=== PATIENT | male | born 1970 | race Caucasian/White ===

== ENCOUNTER 2024-05-30 13:28 | Emergency (ER) | payer BC, SELFPAY ==
[2024-05-30 13:31] VITALS: BP 134/80; PULSE 73; RESP 18; TEMP 36.9; O2SAT 95
[2024-05-30 13:44] VITALS: BP 134/80; PULSE 73; RESP 18; TEMP 36.9; O2SAT 95
--- NOTE | 2024-05-30 14:07 | DI.RAD_ITS ---
Exam(s) XR CHEST 2V PA LATERAL EXAM: XR CHEST 2V PA LATERAL CLINICAL HISTORY: cough, asthma TECHNIQUE: 2D digital imaging was performed of the chest. Two images were obtained. PA and lateral views were obtained. COMPARISON: No exams were available for comparison FINDINGS: MEDIASTINUM: Normal. HEART: Normal. PULMONARY VASCULATURE: Normal. LUNGS: No focal consolidating infiltrates. There is mild bronchial wall thickening. This can be see n with bronchitis. PLEURAL SPACE: No pleural effusion or pneumothorax. BONE:Within normal limits for the patient's age. OTHER FINDINGS:Normal. IMPRESSION: Bronchial wall thickening which may be seen with bronchitis. No focal consolidating infiltrates. DATA REPOSITORY: RADIATION DOSE DELIVERED:
--- NOTE | 2024-05-30 14:12 | ED.GENADUL_ITS ---
Discharge Plan Disposition Patient Disposition: Home Condition: Good Discharge Details Clinical Impression: Asthma exacerbation, Pneumonia Primary Care Provider: [facility],Local ED Provider: Maria Alejandra Johnston Home Meds and New Rx's Prescriptions: New amoxicillin-pot clavulanate 875-125 mg tablet 1 tab PO BID Qty: 14 0RF azithromycin 250 mg tablet See Rx Instructions .ROUTE .COMPLEX Qty: 6 0RF Rx Instructions: For 250 mg dose pack: take 500 mg today (day 1), then 250 mg for 4 days (days 2-5) prednisone 50 mg tablet 50 mg PO DAILY Qty: 4 0RF Continued simvastatin 40 mg tablet 40 mg PO DAILY aspirin [Adult Low Dose Aspirin] 81 mg tablet,delayed release (DR/EC) 81 mg PO DAILY niacin 500 mg capsule, extended release 500 mg PO DAILY Discharge Instructions Instructions: Asthma, Adult ED, Pneumonia, Adult ED Additional Instructions: As we discussed, your exam is concerning for asthma exacerbation but I am also concerned for possible pneumonia. Please continue to encourage hydration. If you develop increased shortness of breath, difficulty breathing, chest pain, inability stay hydrated or other new/worsening symptom please seek care urgently once again. Otherwise, please follow-up with your primary care in the next 2 weeks for reevaluation. Please continue with your other medications as previously prescribed. HPI General Date/Time Provider Initiated Documentation: 05/30/24 13:39 . Limitations to Documentation: no limitations . Information obtained by: patient, family and RN notes reviewed . History of Present Illness 53 year old M presents to the emergency department with the chief complaint of asthma, cough, sputum production, fatigue, described as moderate and similar to prior episodes, and is localized to the chest. Patient started experiencing this week(s) (1) and it has been constant (worsening). No relieving factors improve symptom(s), No exacerbating factors reported . Patient notes cough, fever/chills, malaise and shortness of breath (increase use of inhaler); denies chest pain, headaches, loss of appetite, nausea/vomiting and rash. Patient did receive the following treatments prior to arrival, none Related Data Home Medications ?Medication ?Instructions ?Recorded ?Confirmed amoxicillin 875 mg-potassium 1 tab PO BID #14 tabs 05/30/24 clavulanate 125 mg tablet aspirin 81 mg tablet,delayed 81 mg PO DAILY 05/30/24 05/30/24 release (Adult Low Dose Aspirin) azithromycin 250 mg tablet See Rx Instructions PO .COMPLEX #6 05/30/24 tabs niacin 500 mg capsule,extended 500 mg PO DAILY 05/30/24 05/30/24 release prednisone 50 mg tablet 50 mg PO DAILY #4 tabs 05/30/24 simvastatin 40 mg tablet 40 mg PO DAILY 05/30/24 05/30/24 Previous Rx's ?Medication ?Instructions ?Recorded amoxicillin 875 mg-potassium 1 tab PO BID #14 tabs 05/30/24 clavulanate 125 mg tablet azithromycin 250 mg tablet See Rx Instructions PO .COMPLEX #6 05/30/24 tabs prednisone 50 mg tablet 50 mg PO DAILY #4 tabs 05/30/24 Allergies Allergy/AdvReac Type Severity Reaction Status Date / Time No Known Allergies Allergy Unverified 05/30/24 13:34 General Stated Complaint: RespSymp ALEXEI: 3 Review of Systems Constitutional Constitutional: Reports as per HPI, Denies fever(s), Denies headache(s) and Denies poor appetite ENT Ears, Nose, Mouth, and Throat: Denies dizziness and Denies headache(s) Cardiovascular Cardiovascular: Reports as per HPI Respiratory Respiratory: Reports as per HPI, Denies chest congestion, Denies pain on inspiration and Denies pain with cough Gastrointestinal Gastrointestinal: Reports as per HPI, Denies abdominal pain, Denies nausea and Denies vomiting Genitourinary Genitourinary: Denies system reviewed and no additional complaints, except as documented (denies change in urinary habits) Integumentary/Breasts Skin/Breast: Reports as per HPI and Denies rash Neurologic Neurologic: Reports as per HPI, Denies dizziness and Denies headache(s) Exam Const General: cooperative, healthy appearing, comfortable, no acute distress and well developed Nutritional Appearance: average body habitus and well nourished Orientation: alert, awake and oriented x3 HENMT Head: normal to inspection Ears: hearing grossly normal bilaterally Mouth: moist mucous membranes Chest Chest: normal inspection of the chest, normal palpation of entire chest wall and no crepitus Resp Effort & Inspection: normal respiratory effort, able to speak in complete sentences and no respiratory distress Auscultation: wheezes expiratory wheezes and scattered wheezes Cardio Rate: regular rate Rhythm: regular rhythm Heart Sounds: S1 normal and S2 normal Skin General skin exam: no rashes or lesions noted Trauma: no lacerations or abrasions Neuro General: patient alert, patient awake and patient oriented x3 Cognition: normal cognition Speech: speech normal Psych Appearance: grossly normal and well kempt Mental Status: mental status grossly normal Speech and Movement: speech and movement normal Course Vital Signs Vital signs: Vital Signs Temperature 36.9 C 05/30/24 13:31 Pulse 73 05/30/24 13:31 Respiratory Rate 18 05/30/24 13:31 Blood Pressure 134/80 05/30/24 13:31 Pulse Oximetry 95 05/30/24 13:31 Temperature 36.9 C 05/30/24 13:44 Temperature Source Oral 05/30/24 13:44 Pulse 73 05/30/24 13:44 Respiratory Rate 18 05/30/24 13:44 Respiratory Effort Normal, Non-Labored 05/30/24 13:44 Respiratory Depth Normal 05/30/24 13:44 Blood Pressure 134/80 05/30/24 13:44 Pulse Oximetry 95 05/30/24 13:44 Oxygen Delivery Method Room Air 05/30/24 13:44 Oxygen Flow Rate 0 05/30/24 13:44 Medical Decision Making Patient is a pleasant 53-year-old male presenting today with chief complaint of cough and increased asthma symptoms. Reports that he had a cough for the past week. Feels similar to when he has had pneumonia in the past. Denies any fevers. Has had increased sputum production, particularly in the morning. States that he has been using his albuterol more frequently but has not found this overly beneficial. Denies any chest pain. He did have a stress test incidentally last week at home which was found to be normal per patient report. Patient typically resides in [place]. States he has had some runny nose and congestion. States that he is also had some diarrhea but this seems to be slowing down. On exam, patient appears nontoxic. He is resting comfortably in no acute distress. Hemodynamically stable. He has no respiratory distress. Patient does have some expiratory wheeze fairly diffusely. I do not appreciate any significant rhonchi or crackles. Will obtain chest x-ray to evaluate for any pneumonia. Patient may benefit from systemic steroids. Chest x-ray reviewed by myself, still pending read from this. While largely unremarkable, questioning if there is a consolidation on the lateral view we will. This and the patient's increase in times, I do feel that it is appropriate to treat for asthma exacerbation in the setting of bacterial pneumonia. Patient was negative for flu, COVID, RSV. Discussed this plan with the patient and his family. Encourage follow-up with primary care. Return precautions were discussed. All the questions and concerns were addressed in agreement this plan. Chest x-ray reviewed by radiologist, concerning for bronchitis. Will continue with plan above based on patient's history and exam. This documentation was generated using [employer] dictation system, please disregard any oddities of phrase or misspellings. Quality:SDOH Health Related Social Needs: No Data to Display PFSH All Active Problems (Updated 05/30/24 @ 14:33 by KIM Estevez) Pneumonia (Acute) Asthma exacerbation (Acute) Social History Smoking/Tobacco Use Status: Never Smoking risk assessment performed?: Yes Alcohol Intake: current Alcohol Intake frequency: a few times a month Drug use: Never Substance use type: former substance user Do you feel safe at home: Yes Do you feel safe in your relationship?: Yes
[2024-05-30 14:34] VITALS: BP 143/84; PULSE 64; RESP 18; O2SAT 96
== END 2024-05-30 14:52 | disposition home or self-care (01) ==
LOC: ER 14:40
PROVIDERS: Emergency Provider Physician Assistant
DX: J18.9 Pneumonia, unspecified organism (principal); J45.901 Unspecified asthma with (acute) exacerbation; Z79.82 Long term (current) use of aspirin
CPT/HCPCS: 87426; 99284; 71046